=== PATIENT | female | born 1960 | race Caucasian/White ===

== ENCOUNTER 2018-02-14 20:35 | Emergency (ER) | payer OTHER | END 2018-02-14 22:18 | disposition home or self-care (01) | LOC: FTE 20:35 | DX: J20.9 Acute bronchitis, unspecified (principal); J45.909 Unspecified asthma, uncomplicated; I10 Essential (primary) hypertension | CPT/HCPCS: 71046; 99283-25 ==

== ENCOUNTER 2018-05-14 23:40 | Emergency (ER) | payer OTHER ==
[2018-05-15] MEDS: ALBUTEROL 0.083% (NEB) 2.5 MG/3 ML AMP HHN (03:09)
[2018-05-15] MEDS: predniSONE 20 MG TAB PO (03:10)
[2018-05-15] MEDS: KETOROLAC 30 MG INJ IM (03:10)
== END 2018-05-15 04:54 | disposition home or self-care (01) ==
LOC: FTE 23:40
DX: J20.9 Acute bronchitis, unspecified (principal); I10 Essential (primary) hypertension; J45.901 Unspecified asthma with (acute) exacerbation
CPT/HCPCS: 71045; 94664; 96372; 99284-25

== ENCOUNTER 2018-05-30 14:41 | Inpatient (IN) | payer OTHER ==
[2018-05-30 16:45] LABS: ADD MAN DIFF? NO
[2018-05-30] MEDS: ALBUTEROL 0.5% (NEB) 2.5 MG/0.5 ML AMP INH (16:45)
[2018-05-30] MEDS: IPRATROPIUM (NEB) 0.5 MG/2.5 ML AMP INH (16:45)
[2018-05-30 16:50] LABS: WHITE BLOOD COUNT 19.2 10^3/ul (4.8-10.8)
[2018-05-30 16:50] LABS: BASOPHILS % 0.2 % (0.0-2.0); HEMATOCRIT 38.2 % (37.0-47.0); HEMOGLOBIN 13.2 g/dl (12.0-16.0); LYMPHOCYTES # 1.6 10^3/ul (0.8-2.9); LYMPHOCYTES % 8.2 % (15.0-51.0); MEAN CORPUSCULAR HEMOGLOBIN 31.2 pg (29.0-33.0); MEAN CORPUSCULAR HGB CONC 34.6 g/dl (32.0-37.0); MEAN CORPUSCULAR VOLUME 90.3 fl (82.0-101.0); MEAN PLATELET VOLUME 9.8 fl (7.4-10.4); MONOCYTE # 1.1 10^3/ul (0.3-0.9); MONOCYTES % 5.7 % (0.0-11.0); NEUTROPHIL # 16.3 10^3/ul (1.6-7.5); NEUTROPHILS % 84.7 % (39.0-77.0); PLATELET COUNT 203 10^3/UL (140-415); RED BLOOD COUNT 4.23 10^6/ul (4.20-5.40); RED CELL DISTRIBUTION WIDTH 11.7 % (11.5-14.5)
[2018-05-30] MEDS: DEXAMETHASONE 10 MG/ML 1 ML INJ IV (16:50)
[2018-05-30] MEDS: CEFTRIAXONE 1 GM/50 ML (PMX) 50 ML IVPB (16:52)
[2018-05-30] MEDS: SODIUM CHLORIDE 0.9% 1L BAG IV* (16:56)
[2018-05-30 17:06] LABS: ANION GAP 12 (5-13); BLOOD UREA NITROGEN 11 mg/dl (7-20); CALCIUM 9.1 mg/dl (8.4-10.2); CARBON DIOXIDE 26 mmol/L (21-31); CHLORIDE 98 mmol/L (97-110); CREATININE 0.78 mg/dl (0.44-1.00); Estimated GFR > 60 mL/min (>60); GLUCOSE 168 mg/dl (70-220); POTASSIUM 3.2 mmol/L (3.5-5.1); SODIUM 136 mmol/L (135-144)
[2018-05-30 17:18] LABS: TROPONIN-I < 0.012 ng/ml (0.000-0.120)
[2018-05-30] MEDS ORDERED: ONDANSETRON 4 MG INJ IV ×2 (18:00→20:00)
[2018-05-30] MEDS ORDERED: ACETAMINOPHEN 325 MG TAB PO ×2 (18:00→20:00)
[2018-05-30] MEDS: AZITHROMYCIN 500MG/NS (PMX) 250 ML IV (18:36)
[2018-05-30] MEDS ORDERED: IPRATROPIUM (NEB) 0.5 MG/2.5 ML AMP HHN (20:00)
[2018-05-30] MEDS ORDERED: LEVALBUTEROL (NEB) 1.25 MG/0.5 ML AMP HHN (20:00)
[2018-05-30] MEDS ORDERED: NACL 0.9% 3 ML SYG IV (20:00)
[2018-05-30] MEDS: POTASSIUM CHLORIDE 20 MEQ POWDER FOR ORAL SOLN PO (20:08)
[2018-05-30] MEDS: SOD CHLORIDE 0.9% 1,000 ML IV (20:08)
[2018-05-30] MEDS: GUAIFENESIN/DM 5ML CUP PO (20:25)
[2018-05-30] MEDS: LEVALBUTEROL (NEB) 1.25 MG/0.5 ML AMP HHN (20:46)
[2018-05-30] MEDS: IPRATROPIUM (NEB) 0.5 MG/2.5 ML AMP HHN (20:46)
[2018-05-30] MEDS: BUDESONIDE (NEB) 0.5MG/2ML AMP HHN (20:47)
[2018-05-30 21:15] LABS: LACTIC ACID 1.6 mmol/L (0.5-2.0)
[2018-05-31] MEDS: TOPIRAMATE 100 MG TAB PO ×4 (00:48→22:25)
[2018-05-31] MEDS: LEVETIRACETAM 500 MG TAB PO ×3 (00:48→22:25)
[2018-05-31 06:10] LABS: ADD MAN DIFF? NO
[2018-05-31 06:12] LABS: BASOPHILS % 0.1 % (0.0-2.0); HEMATOCRIT 33.5 % (37.0-47.0); HEMOGLOBIN 11.3 g/dl (12.0-16.0); LYMPHOCYTES # 0.8 10^3/ul (0.8-2.9); LYMPHOCYTES % 7.3 % (15.0-51.0); MEAN CORPUSCULAR HGB CONC 33.7 g/dl (32.0-37.0); MEAN CORPUSCULAR VOLUME 91.8 fl (82.0-101.0); MEAN PLATELET VOLUME 10.1 fl (7.4-10.4); MONOCYTE # 0.3 10^3/ul (0.3-0.9); MONOCYTES % 2.6 % (0.0-11.0); NEUTROPHIL # 9.8 10^3/ul (1.6-7.5); NEUTROPHILS % 89.2 % (39.0-77.0); PLATELET COUNT 186 10^3/UL (140-415); RED BLOOD COUNT 3.65 10^6/ul (4.20-5.40); RED CELL DISTRIBUTION WIDTH 11.6 % (11.5-14.5)
[2018-05-31 06:50] LABS: ALANINE AMINOTRANSFERASE 18 IU/L (13-69); ALBUMIN 3.3 g/dl (3.3-4.9); ALBUMIN/GLOBULIN RATIO 0.94; ALKALINE PHOSPHATASE 86 IU/L (42-121); ANION GAP 14 (5-13); ASPARTATE AMINO TRANSFERASE 19 IU/L (15-46); BILIRUBIN,INDIRECT 0.4 mg/dl (0-1.1); BILIRUBIN,TOTAL 0.4 mg/dl (0.2-1.3); BLOOD UREA NITROGEN 11 mg/dl (7-20); CALCIUM 8.6 mg/dl (8.4-10.2); CARBON DIOXIDE 24 mmol/L (21-31); CHLORIDE 105 mmol/L (97-110); CREATININE 0.61 mg/dl (0.44-1.00); Estimated GFR > 60 mL/min (>60); GLUCOSE 170 mg/dl (70-220); MAGNESIUM 2.4 mg/dl (1.7-2.5); POTASSIUM 3.8 mmol/L (3.5-5.1); SODIUM 143 mmol/L (135-144); TOTAL PROTEIN 6.8 g/dl (6.1-8.1)
[2018-05-31] MEDS: GUAIFENESIN/DM 5ML CUP PO ×3 (08:27→23:24)
[2018-05-31] MEDS: LEVALBUTEROL (NEB) 1.25 MG/0.5 ML AMP HHN ×3 (08:31→19:58)
[2018-05-31] MEDS: IPRATROPIUM (NEB) 0.5 MG/2.5 ML AMP HHN ×3 (08:31→19:58)
[2018-05-31] MEDS: ENOXAPARIN 40 MG/0.4 ML SYG SC (08:32)
[2018-05-31] MEDS: BUDESONIDE (NEB) 0.5MG/2ML AMP HHN ×2 (08:39→19:59)
[2018-05-31] MEDS: TIOTROPIUM 18 MCG CAPSULE INHA DEV INH (10:30)
[2018-05-31] MEDS: FLUTICASONE/VILANTEROL 200-25 INH DEVICE INH (10:30)
[2018-05-31] MEDS: CEFTRIAXONE 1 GM/50 ML (PMX) 50 ML IVPB (17:00)
[2018-05-31] MEDS: AZITHROMYCIN 500MG/NS (PMX) 250 ML IVPB (17:53)
[2018-06-01] MEDS: IPRATROPIUM (NEB) 0.5 MG/2.5 ML AMP HHN ×3 (09:55→19:26)
[2018-06-01] MEDS: LEVALBUTEROL (NEB) 1.25 MG/0.5 ML AMP HHN ×3 (09:56→19:26)
[2018-06-01] MEDS: BUDESONIDE (NEB) 0.5MG/2ML AMP HHN ×2 (09:57→19:26)
[2018-06-01] MEDS: GUAIFENESIN/DM 5ML CUP PO ×2 (10:14→21:31)
[2018-06-01] MEDS: LEVETIRACETAM 500 MG TAB PO ×2 (10:14→21:27)
[2018-06-01] MEDS: TOPIRAMATE 100 MG TAB PO ×3 (10:14→21:27)
[2018-06-01] MEDS: FLUTICASONE/VILANTEROL 200-25 INH DEVICE INH (10:14)
[2018-06-01] MEDS: ENOXAPARIN 40 MG/0.4 ML SYG SC (10:14)
[2018-06-01] MEDS: TIOTROPIUM 18 MCG CAPSULE INHA DEV INH (10:15)
[2018-06-01] MEDS: CEFTRIAXONE 1 GM/50 ML (PMX) 50 ML IVPB (17:31)
[2018-06-01] MEDS: AZITHROMYCIN 500MG/NS (PMX) 250 ML IVPB (19:44)
[2018-06-02 05:00] LABS: ADD MAN DIFF? NO
[2018-06-02 05:06] LABS: BASOPHILS % 0.3 % (0.0-2.0); EOSINOPHILS # 0.1 10^3/ul (0.0-0.5); EOSINOPHILS % 1.1 % (0.0-7.0); HEMATOCRIT 31.9 % (37.0-47.0); HEMOGLOBIN 10.6 g/dl (12.0-16.0); LYMPHOCYTES # 2.2 10^3/ul (0.8-2.9); LYMPHOCYTES % 29.1 % (15.0-51.0); MEAN CORPUSCULAR HEMOGLOBIN 31.1 pg (29.0-33.0); MEAN CORPUSCULAR HGB CONC 33.2 g/dl (32.0-37.0); MEAN CORPUSCULAR VOLUME 93.5 fl (82.0-101.0); MEAN PLATELET VOLUME 9.9 fl (7.4-10.4); MONOCYTE # 0.5 10^3/ul (0.3-0.9); MONOCYTES % 6.4 % (0.0-11.0); NEUTROPHIL # 4.7 10^3/ul (1.6-7.5); NEUTROPHILS % 62.7 % (39.0-77.0); PLATELET COUNT 212 10^3/UL (140-415); RED BLOOD COUNT 3.41 10^6/ul (4.20-5.40)
[2018-06-02 05:06] LABS: WHITE BLOOD COUNT 7.5 10^3/ul (4.8-10.8)
[2018-06-02 05:31] LABS: ALANINE AMINOTRANSFERASE 87 IU/L (13-69); ALBUMIN 3.1 g/dl (3.3-4.9); ALBUMIN/GLOBULIN RATIO 0.96; ALKALINE PHOSPHATASE 75 IU/L (42-121); ANION GAP 12 (5-13); ASPARTATE AMINO TRANSFERASE 48 IU/L (15-46); BILIRUBIN,INDIRECT 0.1 mg/dl (0-1.1); BILIRUBIN,TOTAL 0.1 mg/dl (0.2-1.3); BLOOD UREA NITROGEN 12 mg/dl (7-20); CALCIUM 8.6 mg/dl (8.4-10.2); CARBON DIOXIDE 20 mmol/L (21-31); CHLORIDE 111 mmol/L (97-110); Estimated GFR > 60 mL/min (>60); GLUCOSE 98 mg/dl (70-220); POTASSIUM 3.4 mmol/L (3.5-5.1); SODIUM 143 mmol/L (135-144); TOTAL PROTEIN 6.3 g/dl (6.1-8.1)
[2018-06-02] MEDS: LEVALBUTEROL (NEB) 1.25 MG/0.5 ML AMP HHN ×3 (08:00→19:43)
[2018-06-02] MEDS: IPRATROPIUM (NEB) 0.5 MG/2.5 ML AMP HHN ×3 (08:00→19:44)
[2018-06-02 08:49] LABS: ERYTHROCYTE SEDIMENTATION RATE 63 mm/Hr (0-30)
[2018-06-02] MEDS: BUDESONIDE (NEB) 0.5MG/2ML AMP HHN ×2 (09:00→19:43)
[2018-06-02] MEDS: TOPIRAMATE 100 MG TAB PO ×3 (09:47→21:07)
[2018-06-02] MEDS: TIOTROPIUM 18 MCG CAPSULE INHA DEV INH (09:47)
[2018-06-02] MEDS: LEVETIRACETAM 500 MG TAB PO ×2 (09:48→21:07)
[2018-06-02] MEDS: FLUTICASONE/VILANTEROL 200-25 INH DEVICE INH (09:48)
[2018-06-02] MEDS: ENOXAPARIN 40 MG/0.4 ML SYG SC (09:49)
[2018-06-02] MEDS: GUAIFENESIN/DM 5ML CUP PO (13:30)
[2018-06-02] MEDS: POTASSIUM CHLORIDE (SR) 20 MEQ TAB PO (16:09)
[2018-06-02] MEDS: HYDROCODONE/APAP (5/325) TAB PO (16:15)
[2018-06-02] MEDS: CEFTRIAXONE 1 GM/50 ML (PMX) 50 ML IVPB (18:05)
[2018-06-02] MEDS: AZITHROMYCIN 500MG/NS (PMX) 250 ML IVPB (18:51)
[2018-06-03 06:40] LABS: ADD MAN DIFF? NO
[2018-06-03 06:46] LABS: WHITE BLOOD COUNT 7.3 10^3/ul (4.8-10.8)
[2018-06-03 06:46] LABS: BASOPHILS % 0.3 % (0.0-2.0); EOSINOPHILS # 0.1 10^3/ul (0.0-0.5); EOSINOPHILS % 1.8 % (0.0-7.0); HEMATOCRIT 34.2 % (37.0-47.0); HEMOGLOBIN 11.7 g/dl (12.0-16.0); LYMPHOCYTES # 2.1 10^3/ul (0.8-2.9); LYMPHOCYTES % 28.8 % (15.0-51.0); MEAN CORPUSCULAR HEMOGLOBIN 31.5 pg (29.0-33.0); MEAN CORPUSCULAR HGB CONC 34.2 g/dl (32.0-37.0); MEAN CORPUSCULAR VOLUME 92.2 fl (82.0-101.0); MEAN PLATELET VOLUME 9.7 fl (7.4-10.4); MONOCYTE # 0.5 10^3/ul (0.3-0.9); MONOCYTES % 7.3 % (0.0-11.0); NEUTROPHIL # 4.5 10^3/ul (1.6-7.5); NEUTROPHILS % 61.3 % (39.0-77.0); PLATELET COUNT 251 10^3/UL (140-415); RED BLOOD COUNT 3.71 10^6/ul (4.20-5.40); RED CELL DISTRIBUTION WIDTH 11.9 % (11.5-14.5)
[2018-06-03 07:13] LABS: ANION GAP 14 (5-13); BLOOD UREA NITROGEN 9 mg/dl (7-20); CALCIUM 8.9 mg/dl (8.4-10.2); CARBON DIOXIDE 21 mmol/L (21-31); CHLORIDE 109 mmol/L (97-110); CREATININE 0.83 mg/dl (0.44-1.00); Estimated GFR > 60 mL/min (>60); GLUCOSE 101 mg/dl (70-220); POTASSIUM 3.6 mmol/L (3.5-5.1); SODIUM 144 mmol/L (135-144)
[2018-06-03] MEDS: BUDESONIDE (NEB) 0.5MG/2ML AMP HHN (08:16)
[2018-06-03] MEDS: IPRATROPIUM (NEB) 0.5 MG/2.5 ML AMP HHN ×2 (08:16→13:20)
[2018-06-03] MEDS: LEVALBUTEROL (NEB) 1.25 MG/0.5 ML AMP HHN ×2 (08:16→13:21)
[2018-06-03] MEDS: TOPIRAMATE 100 MG TAB PO (08:57)
[2018-06-03] MEDS: TIOTROPIUM 18 MCG CAPSULE INHA DEV INH (08:57)
[2018-06-03] MEDS: LEVETIRACETAM 500 MG TAB PO (08:57)
[2018-06-03] MEDS: FLUTICASONE/VILANTEROL 200-25 INH DEVICE INH (08:58)
[2018-06-03] MEDS: GUAIFENESIN/DM 5ML CUP PO (09:03)
[2018-06-03] MEDS: ENOXAPARIN 40 MG/0.4 ML SYG SC (09:15)
[2018-06-04] MEDS ORDERED: LEVOFLOXACIN 500 MG TAB PO (06:00)
== END 2018-06-03 14:40 | disposition home or self-care (01) | DRG 871 ==
LOC: E/R 14:41 → 2NE 17:36
PROVIDERS: Internal Medicine
DX: A41.9 Sepsis, unspecified organism (principal); J18.9 Pneumonia, unspecified organism; G40.909 Epilepsy, unspecified, not intractable, without status epilepticus; F31.9 Bipolar disorder, unspecified; R65.20 Severe sepsis without septic shock; G43.909 Migraine, unspecified, not intractable, without status migrainosus; J45.50 Severe persistent asthma, uncomplicated
CPT/HCPCS: 36415; 71045; 80048; 80053; 83605; 83735; 84484; 85025; 85651; 87040; 87400; 93005; 94640; 94644; 94664; 96365; 96375; 99291-25

== ENCOUNTER 2018-11-05 09:58 | Emergency (ER) | payer OTHER ==
[2018-11-05] MEDS: DEXAMETHASONE 10 MG/ML 1 ML INJ IM (10:31)
[2018-11-05] MEDS: ALBUTEROL 0.083% (NEB) 2.5 MG/3 ML AMP HHN (10:32)
[2018-11-05 11:39] LABS: ADD UMIC NO; UR ASCORBIC ACID 20 mg/dL (NEGATIVE); UR BILIRUBIN (Dip) NEGATIVE (NEGATIVE); UR BLOOD (Dip) NEGATIVE (NEGATIVE); UR CLARITY CLEAR (CLEAR); UR COLOR YELLOW (YELLOW); UR GLUCOSE (Dip) NEGATIVE (NEGATIVE); UR KETONES (Dip) NEGATIVE (NEGATIVE); UR LEUKOCYTE ESTERASE (Dip) NEGATIVE Leu/ul (NEGATIVE); UR NITRITE (Dip) NEGATIVE (NEGATIVE); UR TOTAL PROTEIN (Dip) NEGATIVE (NEGATIVE); UR UROBILINOGEN (Dip) NEGATIVE (NEGATIVE)
== END 2018-11-05 12:25 | disposition home or self-care (01) ==
LOC: FTE 12:25
DX: J45.909 Unspecified asthma, uncomplicated (principal); I10 Essential (primary) hypertension; Z87.891 Personal history of nicotine dependence
CPT/HCPCS: 71045; 81003; 94664; 96372; 99284-25